=== PATIENT | female | born 1985 | race Caucasian/White ===

== ENCOUNTER 2022-11-06 12:28 | Emergency (ER) | payer OTHER ==
[2022-11-06 12:53] LABS: BASOPHILS % (AUTO) 0.4 %; EOSINOPHILS # (AUTO) 0.1 10^3/uL (0.0-0.7); EOSINOPHILS % (AUTO) 1.3 %; LYMPHOCYTES # (AUTO) 1.7 10^3/uL (1.5-3.5); MEAN CORPUSCULAR HEMOGLOBIN 30.7 pg (27.0-31.0); MEAN CORPUSCULAR HGB CONC 33.3 g/dL (32.0-36.0); MEAN PLATELET VOLUME 9.6 fL (7.9-10.8); MONOCYTES # (AUTO) 0.3 10^3/uL (0.0-1.0); MONOCYTES % (AUTO) 6.1 %; NEUTROPHILS # (AUTO) 3.1 10^3/uL (1.5-6.6); PLT - PLATELET COUNT 200 10^3/uL (130-450); RED BLOOD COUNT 4.24 10^6/uL (4.20-5.40); RED CELL DISTRIBUTION WIDTH 12.6 % (12.0-15.0); WHITE BLOOD COUNT 5.2 x10^3/uL (4.8-10.8)
[2022-11-06] MEDS ORDERED: SODIUM CHLORIDE 0.9% 1,000 ML IV STA (13:01)
[2022-11-06] MEDS ORDERED: ONDANSETRON 4 MG/2 ML VIAL IVP STA (13:01)
[2022-11-06] MEDS ORDERED: HYDROmorphone 1 MG/ML CARPUJECT IVP STA (13:01)
--- NOTE | 2022-11-06 13:03 | ED Physician Documentation ---
History of Present Illness - Stated complaint Stated Complaint: ABD PX - Chief complaint Chief Complaint: Abd Pain - Additonal information Additional information: 37-year-old female presents emergency department for evaluation of acute right lower quadrant abdominal pain. Patient is visiting [facility]. She was standing in the kitchen cooking when she began to develop sudden onset right lower quadrant pain. She reports it was excruciating and dropped her to her knees. She did have some nausea and vomiting. It has eased up since but not gone away. Past surgical history includes cholecystectomy only. Patient denies possibility of . Regular menstrual cycles. No previous history of ovarian cyst, ovarian torsion. Review of Systems Constitutional: denies: Fever, Chills Cardiac: reports: Reviewed and negative Respiratory: reports: Reviewed and negative GI: reports: Abdominal Pain, Nausea, Vomiting : denies: Dysuria, Frequency, Hesitancy Skin: reports: Reviewed and negative Musculoskeletal: reports: Reviewed and negative PD PAST MEDICAL HISTORY - Present Medications Home Medications: Ambulatory Orders Medication Instructions Recorded Confirmed HYDROcod/ACETAM 5/325 [[place]age 5/325] 1 tablet PO BID PRN #10 tablet 11/06/22 - Allergies Allergies/Adverse Reactions: Allergies Allergy/AdvReac Type Severity Reaction Status Date / Time No Known Drug Allergies Allergy Verified 11/06/22 12:37 PD ED PE NORMAL - General General: Alert and oriented X 3, Well developed/nourished. No: No acute distress (appears uncomfortable and in pain) - Cardiac Cardiac: RRR, No murmur - Respiratory Respiratory: Clear bilaterally - Abdomen Abdomen: Normal bowel sounds, Soft. No: Non tender (percussion tenderness RLQ of abdomen with rebound; equivocal mcburneys) - Back Back: No CVA TTP - Derm Derm: Normal color, Warm and dry, No rash - Extremities Extremities: No deformity - Neuro Neuro: Alert and oriented X 3, correspondent 2-12 intact Eye Opening: Spontaneous Motor: Obeys Commands Verbal: Oriented GCS Score: 15 Results - Vitals Vitals: Vital Signs - 24 hr 11/06/22 11/06/22 12:37 15:51 Temperature 36.5 C Heart Rate 60 60 Respiratory 16 20 Rate Blood Pressure 135/87 H 113/74 O2 Saturation 99 100 Oxygen O2 Source Room air - Labs Labs: Laboratory Tests 11/06/22 11/06/22 11/06/22 12:49 12:49 13:00 WBC 5.2 RBC 4.24 Hgb 13.0 Hct 39.0 MCV 92.0 MCH 30.7 MCHC 33.3 RDW 12.6 Plt Count 200 MPV 9.6 Neut # (Auto) 3.1 Lymph # (Auto) 1.7 [place] # (Auto) 0.3 Eos # (Auto) 0.1 Baso # (Auto) 0.0 Absolute Nucleated RBC 0.00 Nucleated RBC % 0.0 Sodium 139 Potassium 4.0 Chloride 108 Carbon Dioxide 27 Anion Gap 4.0 L BUN 13 Creatinine 0.9 Estimated GFR (MDRD) 71 L Glucose 93 Calcium 9.6 Total Bilirubin 0.8 AST 15 ALT 15 Alkaline Phosphatase 48 Total Protein 6.7 Albumin 4.3 Globulin 2.4 Albumin/Globulin Ratio 1.8 Lipase 28 Urine Color YELLOW Urine Clarity CLEAR Urine pH 5.5 Ur Specific [place] <=1.005 Urine Protein NEGATIVE Urine Glucose (UA) NEGATIVE Urine Ketones NEGATIVE Urine Occult Blood NEGATIVE Urine Nitrite NEGATIVE Urine Bilirubin NEGATIVE Urine Urobilinogen 0.2 (NORMAL) Ur Leukocyte Esterase NEGATIVE Ur Microscopic Review NOT INDICATED Urine Culture Comments NOT INDICATED Urine HCG, Qual NEGATIVE - Rads (name of study) Ct abd Relevant Findings:: Final report received (Normal appendix. 1.4 cm focus within the right adnexa with mild surrounding fluid suggestive of ovarian cyst) pelvic US Relevant Findings:: Final report received, Other (per US tech: Positive flow without torsion. 2 isolated 2 cm ovarian cysts right side) PD Medical Decision Making - ED course Complexity details: reviewed results, re-evaluated patient, d/w patient, d/w marketing consultant (Sharan Humphreys MD) ED course: 37-year-old female presenting emergency department for evaluation of cute onset right lower quadrant abdominal pain with associated nausea and vomiting. On presentation the emergency department she had percussion tenderness to the right lower quadrant. Unremarkable vital signs. No fevers. CBC, electrolytes urinalysis is interpreted by myself are unremarkable. Subsequently a CT of the abdomen was completed to evaluate for the possibility of appendicitis and was negative. There was finding 1.4 cm adnexal cyst. Given the acuity of the symptoms this did raise concern possibility of torsion. Pelvic ultrasound was then completed at the bedside which showed bilateral ovarian flow. The right o vary did have 2 ovarian cysts that each measured approximately 2 cm. Patient was initially administered a milligram of Dilaudid IV which markedly improved the symptoms but after ultrasound the pain had returned. I then administered Toradol which the patient found helpful. Given the concern for the possibility of intermittent torsion I did speak on the phone with Dr. Marcell Humphreys, OB on-call. He is able to review the ultrasound imaging. Though the patient does have 2 ovarian cyst he feels is unlikely the patient is having intermittent torsion. At this time we will discharge her with expectant precautions. Will return for fevers worsening symptoms. A limited prescription of Os[place] is being sent to the pharmacy. I am prescribing a short course of short-acting opioid pain medication for this patient. 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 I have discussed that the opioids are for short term therapy only, and will not be refilled from the ED. Departure - Departure Disposition: 01 Home, Self Care Clinical Impression: Right ovarian cyst Condition: Stable Instructions: ED Cyst Ovarian Prescriptions: HYDROcod/ACETAM 5/325 [[place] 5/325] 1 tablet PO BID PRN #10 tablet PRN Reason: Pain Comments: You are seen today in the emergency department because of sudden pain in the right lower quadrant of your abdomen. Your labs today were essentially normal. CT of the abdomen did not show a problem with your appendix. However it did show a 1.4 cm adnexal cyst. Subsequently this ultrasound was completed of your ovaries which showed no torsion or twisting. This means there was good blood flow to the ovaries. However you do have 2 cysts on the right ovary. This is likely the cause of the pain. Over the next 24 to 48 hours I would recommend th at you take Tylenol and Motrin [id number] and alternating doses. For more severe pain a limited prescription of [place]/hydrocodone has been sent to the [facility] in [place]. Return to the ER for any new or worsening symptoms including fevers uncontrolled pain and vomiting. I am prescribing a short course of narcotic pain medication for you. These are potentially dangerous and addictive medications that should be used carefully. These medications may constipate you. Take an [id number] stool softener (docusate) twice daily with plenty of water while taking these medications. If you go 24 hours without a bowel movement, take ynsm-zwo-opzzeet miralax, per package instructions. Do not drink or drive while taking these medications. If you received narcotic or sedating medications while in the emergency department, do not drive for 24 hours. Store this medication in a safe, secure place and out of reach of children. It is a violation of federal law to give or sell this medication to another person or to use in a manner other than prescribed. The ED will not refill narcotic prescriptions, including prescriptions lost or stolen. To dispose of unwanted medications: 1. [facility] at [address] in [place] has a medication drop box. They accept prescription medications (in pill form) Thursday through Thursday 9:00 a.m. to 5:00 p.m. 2. [facility] accepts prescription medications (in pill form only) for disposal year round. Call for more information. 3. Contact the [facility] for the next [facility] sponsored prescription drug collection event. , [phone], or [phone]; Note that many narcotic pain relievers also contain Tylenol/acetaminophen. Please ensure that your total dose of acetaminophen from all sources does not exceed 3 g (3000 mg) per day. Forms: PCP List
[2022-11-06 13:08] LABS: ALBUMIN 4.3 g/dL (3.2-5.5); ALBUMIN/GLOBULIN RATIO 1.8 (1.0-2.2); BILIRUBIN,TOTAL 0.8 mg/dL (0.2-1.0); CALCIUM 9.6 mg/dL (8.5-10.3); CREATININE 0.9 mg/dL (0.6-1.3); TOTAL PROTEIN 6.7 g/dL (6.4-8.9)
[2022-11-06 13:11] LABS: BILIRUBIN,URINE NEGATIVE (NEGATIVE); GLUCOSE, URINE (UA) NEGATIVE (NEGATIVE); KETONES,URINE (UA) NEGATIVE (NEGATIVE); LEUKOCYTE ESTERASE, URINE NEGATIVE (NEGATIVE); NITRITE,URINE NEGATIVE (NEGATIVE); OCCULT BLOOD,URINE NEGATIVE (NEGATIVE); PH,URINE 5.5 PH (5.0-7.5); PROTEIN,URINE NEGATIVE (NEGATIVE); UROBILINOGEN,URINE 0.2 (NORMAL) E.U./dL (NORMAL)
[2022-11-06 13:13] LABS: CLARITY,URINE CLEAR (CLEAR); HCG UR QUAL NEGATIVE
--- NOTE | 2022-11-06 14:38 | CT Report ---
PROCEDURE: ABDOMEN/PELVIS W INDICATIONS: acute RLQ abd pain CONTRAST: 100mL Omni 300 TECHNIQUE: After the administration of IV contrast, 5 mm thick sections acquired from the diaphragms to the symp hysis. 5 mm thick coronal and sagittal reformats were acquired. For radiation dose reduction, the f ollowing was used: automated exposure control, adjustment of mA and/or kV according to patient size. COMPARISON: None FINDINGS: Image quality: Excellent. Lung bases and heart: Unremarkable. Liver: No solid mass. Gallbladder and biliary tree: Gallbladder has been removed. Spleen: No splenomegaly. Pancreas: No pancreatic ductal dilation. Adrenals: No adrenal nodule. Kidneys and ureters: No hydronephrosis. No renal cystic lesion which requires follow up. No solid mas s. Bowel and peritoneum: No bowel distension. No pathologic free fluid. Appendix is normal. Lymph nodes: No central or retroperitoneal adenopathy. Vessels: No infrarenal aortic aneurysm. PELVIS Reproductive organs: There is minimal fluid surrounding the right adnexa as well as a low-attenuation focus measuring 1.4 cm. Bladder: No abnormal wall thickening, accounting for underdistension. Pelvic lymph nodes: No pelvic adenopathy by size criteria. Bones: No aggressive osseous abnormality. Other: No significant ventral or inguinal hernia. IMPRESSION: Appendix is normal. 1.4 cm focus within the right adnexa with mild surrounding fluid suggestive of ovarian cyst. Reviewed by: Blanca Tamayo MD on 11/06/2022 2:37 PM PDT Approved by: Blanca Tamayo MD on 11/06/2022 2:37 PM PDT Station ID: [id number]
[2022-11-06] MEDS ORDERED: iohexoL-300 100 ML VIAL IVP ONE (15:06)
[2022-11-06] MEDS ORDERED: KETOROLAC 30 MG/ML VIAL IVP STA (15:54)
[2022-11-06 15:56] VITALS: BP 113/74; O2SAT 100
--- NOTE | 2022-11-06 16:03 | Ultrasound Report ---
PROCEDURE: Pelvic w/Doppler Complete INDICATIONS: pelvic pain, R TECHNIQUE: Real-time scanning was performed of the pelvic organs, with image documentation. Additional endovagi nal scanning was necessary due to incomplete visualization of the adnexal and endometrial structures by transabdominal scanning. Doppler interrogation was performed of the ovaries bilaterally. COMPARISON: None. FINDINGS: Uterus: Uterus is anteverted and normal in size at 9.5 x 4.5 x 4.9 cm. The myometrium is homogeneou s. The endometrium measures 9.1 mm in combined thickness. Ovaries: The right ovary measures 5.8 x 2.4 x 2.1 cm, with a calculated ovarian volume of 21.1 cc. The left ovary measures 3.6 x 1.7 x 2.0 cm, with a calculated ovarian volume of 6.4 cc. Appropriate blood flow to the ovaries with Doppler interrogation. Simple cysts are identified within the right ovary measuring 2.2 x 2.1 x 1.7 cm as well as 1.9 x 1.3 x 1.5 cm. Other: No pathologic free abdominal or pelvic fluid. IMPRESSION: Right ovarian cysts. No evidence of torsion. Reviewed by: Blanca Tamayo MD on 11/06/2022 4:01 PM PDT Approved by: Blanca Tamayo MD on 11/06/2022 4:01 PM PDT Station ID: [id number]
== END 2022-11-06 17:16 | disposition home or self-care (01) ==
LOC: ED 12:28
DX: N83.201 Unspecified ovarian cyst, right side (principal)
CPT/HCPCS: 36415; 74177; 76856; 80053; 81003; 81025; 83690; 85025; 93975; 96374; 96375; 99284; J1170; Q9967; 81001; 87086